=== PATIENT | male | born 1985 | race Caucasian/White ===

== ENCOUNTER 2017-10-23 18:11 | Emergency (ER) | payer SELFPAY ==
[~2017-10-23] VITALS: Ht 160 cm; Wt 69.0 kg
[2017-10-23 18:30] VITALS: BP 132/68
== END 2017-10-23 22:34 | disposition left against medical advice (07) ==
LOC: ER 18:37
DX: Z53.21 Procedure and treatment not carried out due to patient leaving prior to being seen by health care provider (principal)